=== PATIENT | female | born 1950 | race Caucasian/White ===

== ENCOUNTER 2020-12-15 09:38 | Outpatient (REF) | payer MEDICARE, SELFPAY ==
--- NOTE | ~2020-12-15 | MM_ITS ---
EXAMINATION: BONE DENSITOMETRY CLINICAL INDICATION: Screening for osteoporosis. COMPARISON: Previous BD dated 12/13/2018 and baseline BD dated 10/05/2005. TECHNIQUE: Using a [employer] DXA System (software version: 13.1) manufactured by [employer], dual-energy x-ray absorptiometry was performed of the lumbar spine and left hip. The images are of good technical quality. Summary results are attached. FINDINGS: AP SPINE L1-L4: Current: BMD 0.834 g/cm2, Z-score -1.1, T-score -2.9, osteoporosis, 0.7% increase from previous, 11.3% decrease from baseline (<5% change is not significant). Prior: BMD 0.828 g/cm2. Baseline: BMD 0.940 g/cm2. LEFT FEMUR, NECK: Current: BMD 0.711 g/cm2, Z-score -0.6, T-score -2.4, osteopenia. Prior: BMD 0.680 g/cm2. Baseline: BMD 0.803 g/cm2. LEFT FEMUR, TOTAL: Current: BMD 0.833 g/cm2, Z-score 0.1, T-score -1.4, osteopenia, 8.6% increase from previous, 4.9% decrease from baseline (<5% change is not significant). Prior: BMD 0.767 g/cm2. Baseline: BMD 0.876 g/cm2. IDENTIFIED RISK FACTORS: Osteoporosis, menopause. HISTORY OF FRACTURE: Foot. MEDICATIONS: Calcium supplements or multivitamin, bisphosphonates. MM/XR DEXA axial skeleton IMPRESSION: 1. DIAGNOSIS: Osteoporosis based on the lowest T-score value of -2.9 in the lumbar spine applying World Health Organization criteria. 2. 10-YEAR FRACTURE RISK PREDICTION, FRAX: Major osteoporotic fracture (clinical spine, forearm, hip or shoulder) 12.2%. Hip fracture 2.6%. 3. Treatment Recommendations: NOF guidelines recommend consideration for treatment in postmenopausal women and men age 50 and older presenting with the following: -A hip or vertebral (clinical or morphometric) fracture. -T-score less than or equal to -2.5 at the femoral neck or spine after appropriate evaluation to exclude secondary causes. -Low bone mass at the hip or spine and a 10-year fracture probability by FRAX of greater than or equal to 3% for hip fracture or greater than or equal to 20% for major osteoporotic fracture based on the [place] adapted WHO algorithm. 4. Other Recommendations: All treatment decisions require clinical judgment and consideration of individual patient factors, including patient preferences, comorbidities, previous drug use, risk factors not captured in the FRAX model (e.g. frailty, falls, vitamin D deficiency, increased bone turnover, interval significant decline in bone density) and possible under or overestimation of fracture risk by FRAX. Additional medical evaluation for secondary cause of low bone mineral density may be appropriate. FUTURE SCAN RECOMMENDATION: People with diagnosed cases of osteoporosis or at high risk for fracture should have regular bone mineral density tests. For patients eligible for Medicare, routine testing is allowed once every 2 years. The testing frequency can be increased to one year for patients who have rapidly progressing disease, those who are receiving or discontinuing medical therapy to restore bone mass, or have additional risk factors.
== END 2020-12-15 09:39 | disposition home or self-care (01) ==
LOC: HO.MAMMO 09:38
PROVIDERS: Visit Provider Internal Medicine
DX: Z13.820 Encounter for screening for osteoporosis (principal); M81.0 Age-related osteoporosis without current pathological fracture; Z78.0 Asymptomatic menopausal state; Z79.899 Other long term (current) drug therapy
CPT/HCPCS: 77080

== ENCOUNTER 2021-03-24 12:45 | Emergency (ER) | payer MEDICARE, BC, SELFPAY ==
--- NOTE | ~2021-03-24 | XR_ITS ---
EXAMINATION: XR TIBIA AND FIBULA, LEFT CLINICAL INFORMATION: Fall. Laceration. COMPARISON: None TECHNIQUE: AP and lateral views of the left tibia and fibula were obtained. FINDINGS: The bones and soft tissues are normal. No fracture. No osseous lesions. XR/XR tibia fibula LT 2V IMPRESSION: Unremarkable left tibia and fibula exam.
[2021-03-24 13:05] VITALS: BP 139/61; PULSE 54; RESP 18; TEMP 36.6; O2SAT 97; BMI 25.9
--- NOTE | 2021-03-24 14:00 | ED_ITS ---
HPI - Wound/Laceration General Chief Complaint: Wound/Laceration Stated Complaint: lac from fall Time Seen by Provider: 03/24/21 13:12 Source: patient Mode of arrival: ambulatory Limitations: no limitations History of Present Illness HPI narrative: 70-year-old female here with complaints of laceration to the left lower leg. Patient tells me she tripped at home causing laceration to her left leg from a toy that was on the ground. Tetanus out of date Related Data Allergies Allergy/AdvReac Type Severity Reaction Status Date / Time No Known Allergies Allergy Verified 03/24/21 13:08 Review of Systems Review of Systems: Yes all other systems are reviewed and are negative Constitutional: Constitutional: Reports no additional constitutional complaints, Denies body ache(s), Denies chills, Denies fever(s), Denies heada julio c(s) and Denies weakness Eyes: Eyes: Reports no additional eye complaints and Denies change in vision ENT: Reports system reviewed and no additional complaints, except as documented, Denies dizziness, Denies headache(s), Denies nasal congestion, Denies nasal discharge and Denies neck pain Cardiovascular: Cardiovascular: Reports no additional cardiovascular complaints, Denies chest pain, Denies leg edema and Denies dyspnea Respiratory: Respiratory: Reports no additional respiratory complaints, Denies cough and Denies dyspnea Gastrointestinal: Gastrointestinal: Reports no additional gastrointestinal complaints, Denies abdominal pain, Denies diarrhea, Denies nausea and Denies vomiting Genitourinary: Genitourinary: Reports no additional female genitourinary complaints and Denies urinary incontinence Musculoskeletal: Musculoskeletal: Reports no additional musculoskeletal complaints, Denies back pain, Denies arthralgias, Denies joint swelling, Denies neck pain, Denies numbness and Denies tingling Integumentary/Breasts: Skin/Breast: Reports system reviewed and no additional complaints, except as docu and Denies rash Comments: +laceration Neurologic: Denies Abnormal speech present, Denies dizziness, Denies headache(s), Denies numbness, Denies tingling and Denies weakness PMFSH Past Medical History Attestation statement: The following information was validated with the patient. Source: old records reviewed and nursing notes reviewed Medical History Osteoporosis Surgical History History of delivery Social History Social History Advance Directives: No Advance Directives Information Provided: No Physical Exam Vital Signs: Vital Signs: Last Vital Signs Temp 97.8 F 03/24/21 13:05 Pulse 54 03/24/21 13:05 Resp 18 03/24/21 13:05 BP 139/61 03/24/21 13:05 Pulse Ox 97 03/24/21 13:05 Body Mass Index 25.9 Const: General: cooperative, healthy appearing, comfortable and no acute distress Orientation/consciousness: patient oriented x3 Limitations: no limitations HENMT: Head: Yes normal to inspection Ears: hearing grossly normal bilaterally General nose exam: Normal external nose present Face and sinus: Yes normal facial exam Mouth: Normal oral and palatal mucosa present Throat: Yes posterior oropharynx normal Eyes: General: appearance normal, both eyes and all related structures Pupils: Equal, round and reactive pupils present Neck: Neck: Yes normal visual inspection Chest: Chest palpation & inspection: normal inspection of the chest Resp: Effort & Inspection: normal respiratory effort Auscultation: clear to auscultation bilaterally Cardio: Rate: regular rate Rhythm: regular rhythm Peripheral pulses: Peripheral pulses 2+ throughout GI: Inspection: Yes normal to inspection Palpation (GI): Soft to palpation and nontender Auscultation: normal bowel sounds Back/Spine/Pelvis: Thoracic/Lumbar Spine: thoracic and lumbar spine normal to inspection Skin: General skin exam: no rashes or lesions noted Neuro: General: patient oriented x3, no focal motor deficits and normal sensation to monofilament Cranial nerves: Yes Equal, round and reactive pupil s present Cognition (Neuro): normal cognition Speech: No Abnormal speech present Gait exam (Neuro): Normal gait present Motor exam (neuro): 5/5 motor strength present throughout Extrem: Other: 3cm laceration noted to left anterior mayo, bleeding controlled, FROM General: Yes normal to inspection Course Course Course Narrative: Laceration to the left lower extremity. Will check x-rays. Update tetanus and perform own repair. 1445-x-ray shows no acute finding. See procedure note. Reviewed worrisome signs and symptoms of when to return to the emergency department. Comfortable discharge home. Procedures Laceration Laceration 1: Site: lower extremity Side (If applicable): left Size (cm): 3 Description: linear Depth: involves muscle layer Local Anesthetic: lidocaine 2% Pre-repair: wound explored and irrigated extensively Skin layer closed with: vicryl Size (cm): 4-0 Number of sutures: 4 Technique: simple, interrupted MDM - Wound/Laceration Differential Diagnosis Differential diagnosis: Likely laceration Medical Records Attestation: I reviewed the patient's medical records. Lab Data Attestation: I reviewed the patient's lab results. Imaging Data lft tibia/fibular xray: Attestation: I personally reviewed and interpreted this imaging study as follows: Radiologist's impression: EXAMINATION: XR TIBIA AND FIBULA, LEFT CLINICAL INFORMATION: Fall. Laceration.? COMPARISON: None? TECHNIQUE: AP and lateral views of the left tibia and fibula were obtained. FINDINGS: The bones and soft tissues are normal. No fracture. No osseous lesions. ? XR/XR tibia fibula LT 2V IMPRESSION: Unremarkable left tibia and fibula exam. ? Discharge Plan Discharge Clinical Impression: Laceration Patient Disposition: Home, Self-Care Instructions: Laceration (ED) Additional Instructions: sutures out in 14 days ice, elevation Referrals: Kuldeep Dean DO, MD [Primary Care Provider] - 2 days Interventions: ED Discharge Assessment Last Done: 03/24/21 15:21 Discharge Date/Time: 03/24/21 15:22
[2021-03-24] MEDS: Diphth,Pertus(ACell),Tet Adult 0.5 ML SYRINGE IM (14:10)
[2021-03-24] MEDS: Lidocaine HCl 2 % MPF 5 ML VIAL SUBCUT (15:21)
== END 2021-03-24 15:22 | disposition home or self-care (01) ==
PROVIDERS: Emergency Provider Emergency Medicine; PCP Internal Medicine
DX: S81.812A Laceration without foreign body, left lower leg, initial encounter (principal); M79.662 Pain in left lower leg; W01.10XA Fall on same level from slipping, tripping and stumbling with subsequent striking against unspecified object, initial encounter; Y93.9 Activity, unspecified; Y92.009 Unspecified place in unspecified non-institutional (private) residence as the place of occurrence of the external cause; Y99.9 Unspecified external cause status
CPT/HCPCS: 12002; 73590; 90471; 90715; 99284

== ENCOUNTER 2021-04-25 12:31 | Outpatient (REF) | payer MEDICARE, SELFPAY ==
--- NOTE | ~2021-04-25 | MM_ITS ---
EXAMINATION: MM SCREENING DIGITAL BREAST TOMOSYNTHESIS, BILATERAL CLINICAL INFORMATION: Screening. Asymptomatic. Remote history reduction mammoplasty, 1997. The lifetime risk of breast cancer based on the Tyrer-Cuzick Model is 3%. COMPARISON: Mammography: 04/19/2020, 12/13/2018, 12/08/2017 TECHNIQUE: Digital breast tomosynthesis is performed in both the craniocaudal and mediolateral oblique views along with computer-aided detection (CAD). Synthesized 2D images are generated from the tomosynthesis. FINDINGS: The breasts are heterogeneously dense, which may obscure small masses (ACR BI-RADS breast composition Category c). There are no significant masses, abnormal calcifications, or other abnormalities. Fine fibronodular parenchymal pattern is similar to prior studies. There is no developing density. The axilla and skin contours are unremarkable. No significant changes. MM/MM tomosynthesis screening BI IMPRESSION: No significant changes from prior exams. ASSESSMENT: BI-RADS 2: Benign RECOMMENDATION: Routine annual mammography screening. This patient's information was entered into a reminder system with a target due date for their next mammogram.
== END 2021-04-25 12:32 | disposition home or self-care (01) ==
LOC: HO.MAMMO 12:31
PROVIDERS: Visit Provider Internal Medicine
DX: Z12.31 Encounter for screening mammogram for malignant neoplasm of breast (principal)
CPT/HCPCS: 77063; 77067

== ENCOUNTER 2022-04-27 09:13 | Outpatient (REF) | payer MEDICARE, SELFPAY ==
--- NOTE | ~2022-04-27 | MM_ITS ---
EXAMINATION: MM SCREENING DIGITAL BREAST TOMOSYNTHESIS, BILATERAL CLINICAL INFORMATION: Screening. Asymptomatic. The lifetime risk of breast cancer based on the Tyrer-Cuzick Model is 3%. COMPARISON: Mammography: 04/25/2021, 04/19/2020, 12/13/2018 TECHNIQUE: Digital breast tomosynthesis is performed in both the craniocaudal and mediolateral oblique views along with computer-aided detection (CAD). Synthesized 2D images are generated from the tomosynthesis. FINDINGS: The breasts are heterogeneously dense, which may obscure small masses (ACR BI-RADS breast composition Category c). There are no significant masses, abnormal calcifications, or other abnormalities. There is fine fibronodular parenchymal pattern is similar to prior exams. No developing density or architectural abnormality. The axilla are unremarkable. MM/MM tomosynthesis screening BI IMPRESSION: No mammographic evidence of malignancy. ASSESSMENT: BI-RADS 1: Negative RECOMMENDATION: Routine annual mammography screening. This patient's information was entered into a reminder system with a target due date for their next mammogram.
== END 2022-04-27 09:14 | disposition home or self-care (01) ==
LOC: HO.MAMMO 09:13
PROVIDERS: PCP Internal Medicine; Visit Provider Internal Medicine
DX: Z12.31 Encounter for screening mammogram for malignant neoplasm of breast (principal)
CPT/HCPCS: 77063; 77067

== ENCOUNTER 2023-05-04 08:48 | Outpatient (REF) | payer MEDICARE, BC, SELFPAY ==
--- NOTE | ~2023-05-04 | MM_ITS ---
EXAMINATION: BONE DENSITOMETRY CLINICAL INDICATION: Osteoporosis. COMPARISON: Previous BD dated 12/15/2020 and baseline BD dated 10/05/1999. TECHNIQUE: Using a [employer] DXA System (software version: 13.1) manufactured by [employer], dual-energy x-ray absorptiometry was performed of the lumbar spine and left hip. The images are of good technical quality. Summary results are attached. FINDINGS: LEFT FEMUR, NECK: Current: BMD 0.719 g/cm2, Z-score -0.5, T-score -2.3, osteopenia. Prior: BMD 0.711 g/cm2. Baseline: BMD 0.803 g/cm2. LEFT FEMUR, TOTAL: Current: BMD 0.821 g/cm2, Z-score 0.2, T-score -1.5, osteopenia, 1.4% decrease from previous, 6.3% decrease from baseline (<5% change is not significant). Prior: BMD 0.833 g/cm2. Baseline: BMD 0.876 g/cm2. AP SPINE L1-L4: Current: BMD 0.780 g/cm2, Z-score -1.5, T-score -3.3, osteoporosis, 6.5% decrease from previous, 17.0% decrease from baseline (<5% change is not significant). Prior: BMD 0.834 g/cm2. Baseline: BMD 0.940 g/cm2. IDENTIFIED RISK FACTORS: Early menopause, secondary osteoporosis, hysterectomy, history of fracture (adult), low calcium intake, osteoporosis, rheumatoid arthritis. HISTORY OF FRACTURE: Other. MEDICATIONS: Calcium, multivitamin. MM/XR DEXA axial skeleton IMPRESSION: 1. DIAGNOSIS: Osteoporosis based on the lowest T-score value of -3.3 in the lumbar spine applying World Health Organization criteria. 2. 10-YEAR FRACTURE RISK PREDICTION, FRAX: According to the guidelines, FRAX calculation should only be performed on patients in the osteopenia bone density category. Therefore, FRAX was not performed on this patient. 3. Treatment Recommendations: NOF guidelines recommend consideration for treatment in postmenopausal women and men age 50 and older presenting with the following: -A hip or vertebral (clinical or morphometric) fracture. -T-score less than or equal to -2.5 at the femoral neck or spine after appropriate evaluation to exclude secondary causes. -Low bone mass at the hip or spine and a 10-year fracture probability by FRAX of greater than or equal to 3% for hip fracture or greater than or equal to 20% for major osteoporotic fracture based on the [place] adapted WHO algorithm. 4. Other Recommendations: All treatment decisions require clinical judgment and consideration of individual patient factors, including patient preferences, comorbidities, previous drug use, risk factors not captured in the FRAX model (e.g. frailty, falls, vitamin D deficiency, increased bone turnover, interval significant decline in bone density) and possible under or overestimation of fracture risk by FRAX. Additional medical evaluation for secondary cause of low bone mineral density may be appropriate. FUTURE SCAN RECOMMENDATION: People with diagnosed cases of osteoporosis or at high risk for fracture should have regular bone mineral density tests. For patients eligible for Medicare, routine testing is allowed once every 2 years. The testing frequency can be increased to one year for patients who have rapidly progressing disease, those who are receiving or discontinuing medical therapy to restore bone mass, or have additional risk factors.
--- NOTE | ~2023-05-04 | MM_ITS ---
EXAMINATION: MM SCREENING DIGITAL BREAST TOMOSYNTHESIS, BILATERAL CLINICAL INFORMATION: Screening. Asymptomatic. The patient has a history of bilateral breast reduction. COMPARISON: Mammography: This study is compared with prior exams dating back to 2018. TECHNIQUE: Digital breast tomosynthesis is performed in both the craniocaudal and mediolateral oblique views along with computer-aided detection (CAD). Synthesized 2D images are generated from the tomosynthesis. FINDINGS: The breasts are heterogeneously dense, which may obscure small masses (ACR BI-RADS breast composition Category c). There are no significant masses, abnormal calcifications, or other abnormalities. MM/MM tomosynthesis screening BI IMPRESSION: No mammographic evidence of malignancy. ASSESSMENT: BI-RADS BI-RADS 1 - Negative RECOMMENDATION: Routine annual mammography screening. 1 year F/U This examination should not preclude the clinical evaluation of a suspicious palpable abnormality. This patient's information was entered into a reminder system with a target due date for their next mammogram.
== END 2023-05-04 08:49 | disposition home or self-care (01) ==
LOC: HO.MAMMO 08:48
PROVIDERS: PCP Internal Medicine; Visit Provider Internal Medicine
DX: Z12.31 Encounter for screening mammogram for malignant neoplasm of breast (principal); Z13.820 Encounter for screening for osteoporosis; Z78.0 Asymptomatic menopausal state; M81.0 Age-related osteoporosis without current pathological fracture
CPT/HCPCS: 77063; 77067; 77080

== ENCOUNTER → 2023-05-04 09:00 | Outpatient (BNV) | payer MEDICARE, BC, SELFPAY | PROVIDERS: PCP Internal Medicine; Visit Provider Radiology Diagnostic Radiology | DX: Z12.31 Encounter for screening mammogram for malignant neoplasm of breast (principal) | CPT/HCPCS: 77063; 77067; 77080 ==

== ENCOUNTER 2024-05-09 08:38 | Outpatient (REF) | payer MEDICARE, BC, SELFPAY ==
--- NOTE | ~2024-05-09 | MM_ITS ---
EXAMINATION: MM SCREENING DIGITAL BREAST TOMOSYNTHESIS, BILATERAL CLINICAL INFORMATION: Screening. Asymptomatic. COMPARISON: Mammography: Comparison is made with available priors TECHNIQUE: Digital breast mammography with tomosynthesis is performed in both the craniocaudal and mediolateral oblique views along with computer-aided detection (CAD). FINDINGS: The breasts are heterogeneously dense, which may obscure small masses (ACR BI-RADS breast composition Category c). Left: There are no significant masses, abnormal calcifications, or other abnormalities. Right: Grouped calcifications in the upper-outer breast posterior depth. No suspicious masses or other abnormal findings. MM/MM tomosynthesis screening BI IMPRESSION: Left: No mammographic evidence of malignancy. Right: Grouped calcifications additional imaging is recommended at this time. ASSESSMENT: BI-RADS BI-RADS 0 - Incomplete: Needs additional Imaging. RECOMMENDATION: 1. Additional views of the right breast 2. Targeted ultrasound if warranted after review of the additional views. 3. Radiology department staff will contact the patient for additional imaging. Additional Imaging required This examination should not preclude the clinical evaluation of a suspicious palpable abnormality. This patient's information was entered into a reminder system with a target due date for their next mammogram. Electronically signed by: Elma King DO 05/22/2024 08:07 PM EDT
== END 2024-05-09 08:39 | disposition home or self-care (01) ==
LOC: HO.MAMMO 08:38
PROVIDERS: PCP Internal Medicine; Visit Provider Internal Medicine
DX: Z12.31 Encounter for screening mammogram for malignant neoplasm of breast (principal)
CPT/HCPCS: 77063; 77067

== ENCOUNTER → 2024-05-09 08:45 | Outpatient (BNV) | payer MEDICARE, BC, SELFPAY | PROVIDERS: PCP Internal Medicine; Visit Provider Internal Medicine | DX: Z12.31 Encounter for screening mammogram for malignant neoplasm of breast (principal) | CPT/HCPCS: 77063; 77067 ==

== ENCOUNTER 2024-06-11 08:18 | Outpatient (REF) | payer MEDICARE, BC, SELFPAY ==
--- NOTE | ~2024-06-11 | MM_ITS ---
EXAMINATION: MM DIAGNOSTIC DIGITAL BREAST TOMOSYNTHESIS, RIGHT CLINICAL INFORMATION: Evaluate grouped calcifications upper outer right breast, middle one third seen on screening exam 05/09/2024. COMPARISON: Mammography: 06/08/2024, 05/04/2023, 04/27/2022, 04/25/2021, and exams dating back to 2018. TECHNIQUE: Digital breast tomosynthesis is performed in the following views: 2-D spot magnification right CC x1 and MLO x2. FINDINGS: The breasts are heterogeneously dense, which may obscure small masses (ACR BI-RADS breast composition Category c). In the upper outer quadrant of the right breast, middle one third, there is a small grouping of microcalcifications, approximately 12 in number, which have slowly increased in number over the prior 2 years. They demonstrate pleomorphism with possibly one branching form. These are indeterminant, and given increase over time, stereotactic guided biopsy is recommended for further characterization. No additional abnormalities identified on these views. MM/MM added views RT IMPRESSION: -Indeterminate calcifications right breast upper outer quadrant, middle one third. Stereotactic biopsy advised for definitive characterization. -Findings and recommendations were discussed with the patient in detail, who appears in understanding. ASSESSMENT: BI-RADS BI-RADS 4 - Suspicious finding RECOMMENDATION: Biopsy recommended Electronically signed by: Pavan Johnston MD 06/11/2024 08:59 AM EDT
== END 2024-06-11 08:19 | disposition home or self-care (01) ==
LOC: HO.MAMMO 08:18
PROVIDERS: PCP Internal Medicine; Visit Provider Internal Medicine
DX: R92.1 Mammographic calcification found on diagnostic imaging of breast (principal)
CPT/HCPCS: 77065

== ENCOUNTER → 2024-06-11 08:30 | Outpatient (BNV) | payer MEDICARE, BC, SELFPAY | PROVIDERS: PCP Internal Medicine; Visit Provider Radiology Diagnostic Radiology | DX: R92.1 Mammographic calcification found on diagnostic imaging of breast (principal) | CPT/HCPCS: 77065; G0279 ==

== ENCOUNTER 2024-06-19 07:47 | Outpatient (REF) | payer MEDICARE, BC, SELFPAY ==
--- NOTE | ~2024-06-19 | MM_ITS ---
EXAMINATION: STEREOTACTIC TOMOSYNTHESIS-GUIDED VACUUM-ASSISTED BREAST BIOPSY, RIGHT SPECIMEN RADIOGRAPH, RIGHT POST PROCEDURE DIGITAL MAMMOGRAM, RIGHT CLINICAL INFORMATION: Indeterminate calcifications upper outer right breast middle one third, for sampling. COMPARISON: Mammography: 06/11/2024, 06/08/2024, 05/04/2023, 04/27/2022, 04/25/2021, and exams dating back to 2018. TECHNIQUE/PROCEDURE: Informed consent was obtained from the patient after discussion of the benefits, risks, and alternatives to biopsy today. Patient appeared to understand. Gave opportunity for questions. Patient signed consent form. BIOPSY TABLE: [employer] Affirm Prone Biopsy System. LESION: Grouped microcalcifications upper outer right breast, middle third. LOCAL ANESTHESIA: 4 mL 1% lidocaine; 9 mL 1% lidocaine with epinephrine. DERMATOTOMY: Single 2 mm skin rojelio dermatotomy performed. NEEDLE: [employer] 9-gauge vacuum assisted core biopsy device. APPROACH: Craniocaudal. TARGETING: Digital breast tomosynthesis used for targeting. CORES: 7. CLIP: Top hat shaped. SPECIMEN RADIOGRAPH: Specimen radiograph is taken in separate room using digital mammography. The index calcifications are in the excised cores. POST PROCEDURE UNILATERAL DIGITAL MAMMOGRAM: The post biopsy mammogram is performed in separate room using separate digital mammography equipment from the biopsy procedure. CC and ML views are obtained. The breasts are heterogeneously dense, which may obscure small masses (breast composition category: c). The clip marker is in accurate position. The calcifications appear essentially completely sampled at the biopsy site. The patient tolerated the procedure well. No immediate complications. Home instructions reviewed with the patient. Final pathology results are pending. MM/MM stereotactic biopsy RT IMPRESSION: 1. Digital tomosynthesis-guided core biopsy right breast calcifications upper outer quadrant middle one third, with clip placement. 2. Specimen radiograph taken and post procedure mammogram. There is satisfactory and accurate positioning of the biopsy clip. 3. Final pathology results pending. An addendum report will be issued. Electronically signed by: Pavan Johnston MD 06/19/2024 10:14 AM EDT
[2024-06-19] MEDS: Lidocaine HCl 1 % 20 ML VIAL 3 ML SUBCUT (09:31)
[2024-06-19] MEDS: Lidocaine HCl 1%/Epi 1:100,000 10 ML VIAL 19 ML SUBCUT (09:32)
[2024-06-19] MEDS: Sodium Bicarbonate 8.4% 50 MEQ/50 ML VIAL SUBCUT (09:33)
== END 2024-06-19 07:48 | disposition home or self-care (01) ==
LOC: HO.MAMMO 07:47
PROVIDERS: PCP Internal Medicine; Visit Provider Internal Medicine
DX: R92.1 Mammographic calcification found on diagnostic imaging of breast (principal)
CPT/HCPCS: 19081; 88305; A4648; J2003; J2004

== ENCOUNTER → 2024-06-19 08:00 | Outpatient (BNV) | payer MEDICARE, BC, SELFPAY | PROVIDERS: PCP Internal Medicine; Visit Provider Radiology Diagnostic Radiology | DX: R92.1 Mammographic calcification found on diagnostic imaging of breast (principal) | CPT/HCPCS: 19081 ==

== ENCOUNTER 2025-05-15 08:20 | Outpatient (REF) | payer MEDICARE, BC, SELFPAY ==
--- NOTE | ~2025-05-15 | MM_ITS ---
EXAMINATION: DXA BONE DENSITY AXIAL HISTORY: AGE RELATED OSTEOPOROSIS TECHNIQUE: [employer] Dual energy absorptiometry (DEXA) of the lumbar spine, total left hip, and femoral neck was performed. COMPARISON: Comparison is made with the prior examination dated 05/04/2023. FINDINGS: The bone mineral density of the lumbar spine is 0.825 g/cm2, corresponding to a T-score of -3.0, and a Z-score of -1.1. This is indicative of osteoporosis. This represents a BMD change of 5.8% compared to the prior exam. This is statistically significant. The bone mineral density of the left total hip is 0.818 g/cm2, corresponding to a T-score of -1.5, and a Z-score of 0.2. This is indicative of osteopenia. This represents a BMD change of -0.4% compared to the prior exam. This is not statistically significant. The bone mineral density of the left femoral neck is 0.714 g/cm2, corresponding to a T-score of -2.3, and a Z-score of -0.4. This is indicative of osteopenia. This represents a BMD change of -0.7% compared to the prior exam. FRACTURE RISK: The FRAX index suggests a ten year probability of major osteoporotic fracture of 8.5%, and of hip fracture 2.3%. MM/XR DEXA axial skeleton IMPRESSION: Based on bone mineral density, and according to World Health Organization (WHO) criteria, the diagnosis is consistent with osteoporosis. Statistically, 68% of repeat scans fall within 1 SD (+/- 0.010 g/cm2 for AP spine L1-L4) and 1 SD (+/- 0.012 g/cm2 for femur total) FRAX is a trademark of the [employer]'s [place] [facility] [employer], a World Health Organization (WHO) Collaborating Center. Electronically signed by: Candelario Balderrama MD 05/15/2025 10:07 AM EDT
--- OUTSIDE RECORDS SUMMARY | 2025-05-15 08:51 | XMS_ITS | Encounter Summary ---
Author Organization [facility] Address [address] [place] [id number] Phone Care Team Providers Care Financial Advocate Name Role Phone KilosebastiánjessKuldeep richmond Primary Care Provider [phone] Encounter Details Date Type Department Care Team (Late Contact Info) Description 10/25/2023 Ancillary Orders [address] [address] System, Provider Not In, [facility] [address] [id number] Social History Tobacco Use Types Packs/Day Years Used Date Smoking Tobacco: Former Cigarettes Smokeless Tobacco: Never Alcohol Use Standard Drinks/Week Comments Never 0 (1 standard drink = 0.6 oz pur e alcohol) Education Answer Date Recorded Are you interested in more education? Not on jose e 09/21/2023 Are you concerned about learning? Not on file 09/21/2023 No 09/21/2023 No 09/21/2023 Digital Access Answer Date Recorded No 09/21/2023 No 09/21/2023 Reliable internet access at home? Not on file 09/21/2023 Device with a working camera? Not on file Comments Unknown Sex and Gender Information Value Date Recorded Sex Assigned at Female 10/16/2023 1:50 PM EST Legal Sex Female 1:06 PM EDT Gender Identity Female 10/16/2023 1:50 PM EST Sexual Orientation Not on file documented as of this encounter Plan of Treatment Upcoming Encounters Date Type Department Care Team (Late Contact Info) Description 05/25/2025 8:40 AM EDT Office Visit [facility] [address] [place] [address] Abbey Calixto MD [address] [place] [id number] [email or web address] documented as of this encounter Results * DXA Outside (No Interpretation) (12/15/2020 12:00 AM EDT) Narrative Record, 10/25/2023 1:50 PM EST This study is for PACS storage only and not for interpretation. Procedure Note Record, 10/25/2023 This study is for PACS storage only and not for interpretation. us Provider Not In System PhD IMG OUTSIDE IMAGING W /OUT INTERPRETATION Final Result documented in this encounter Visit Diagnoses Not on filedocumented in this encounter Care Teams Financial Advocate Relationship Specialty Start Date End Date Kuldeep Dean DO [address] [place] [id number] PCP - General Internal Medicine 10/16/23 documented as of this encounter Additional Source Comments The information contained in this document represents components of the legal health record. It is not the complete legal health record.[facility]
--- OUTSIDE RECORDS SUMMARY | 2025-05-15 08:51 | XMS_ITS | Clinical Summary ---
Author Organization [facility] Address [address] [place] [phone] Phone Care Team Providers Care Lay Out Worker Name Role Phone Kuldeep Dean DO Primary Care Provider Allergies No known active allergies Medications dicyclomine (BENTYL) 10 MG capsule Take 10 mg by mouth daily as needed. 09/25/2023 Active glucosam/chond-m sm1/C/tarcy/bor (GLUCOSAMINE-CHO ND-MSM COMPLEX ORAL) Take by mouth. Active CALCIUM-VIT D3-MAG GLY-ZINC ORAL Take by mouth. Active Medication-Free Text Focus Active glucosamine/kenna dr miley villa (OSTEO BI-FLEX ORAL) Take by mouth. Active predniSONE (DELTASONE) 20 MG tablet Take 20 mg by mouth daily with breakfast. For 3 days for rash Active Active Problems Problem Noted Date Diagnosed Date Age-related osteoporosis wit hout current pathological fracture 10/23/2023 Assessment & Plan (07/03/2024 6:04 PM EST): Postmenopausal osteoporosis diagnosed around 2004. GI intolerance to Fosamax. History of left fibula fracture in 07/2019 after a fall. Received 3 doses of Reclast between 01/2019 and 02/2021. Last DEXA in 04/2023 showed significant 6.5% decline at the lumbar spine with T-score -3.3 and 6.3% decline at the left total hip with T-score - 1.5. She received her fourth dose of Reclast in 11/2023. No recent falls and no new fracture. Calcium and vitamin D intake is adequate. Remains very active, exercising regularly. Plan to continue current calcium and vitamin D supplement. To have labs soon. Repeat DEXA after 05/04/2025 at [facility]. Assessment & Plan (10/23/2023 9:50 AM EST): Postmenopausal osteoporosis diagnosed around 2004. GI intolerance to Fosamax. History of left fibula fracture in 07/2019 after a fall. Received 3 doses of Reclast 1 year apart, last dose in 02/2021. Last DEXA reported in 04/2023, waiting for report. Previous DEXA in 11/2020 showed stable lumbar spine with T-score -2.9, left total hip improved by 8.6% compared to 2017 with T-score -1.4. Patient has been taking a calcium plus D supplement, exercising regularly, no tendency to fall. Recent labs are not available. Discussed importance of adequate calcium, vitamin D intake, regular weightbearing exercises and fall prevention. Recommended to add some posture exercises. May check out the bone health and osteoporosis foundation's website for more ideas about exercise. Will obtain last DEXA report and have blood work and urine test and we will discuss further management through [place]. Follow-up in 6 to 8 months. Vitamin D deficiency, unspecified 10/23/2023 Assessment & Plan (07/03/2024 6:07 PM EST): Patient is taking calcium plus D supplement, not sure about dose. Last vitamin D level was normal at 36.9 in 10/2023. PTH was slightly elevated at 72 with normal serum calcium of 9.4 and albumin of 4.3. No history of kidney stones. Will check labs and adjust vitamin D dose as needed. Assessment & Plan (10/23/2023 9:50 AM EST): Patient is taking calcium plus D supplement, not sure about dose. Recent labs are not available. Will check level and adjust dose as needed. Encounters Date Type Department Care Team Description 03/05/2025 Telephone [facility] [address] [place] [address] Abbey Calixto MD Request For Order(s) from Last 3 Months Social History Tobacco Use Types Packs/Day Years [...] PM EST Sexual Orientation Not on file Last Filed Vital Signs Vital Sign Reading Time Taken Comments Blood Pressure 128/74 06/23/2024 8:25 AM EDT Pulse 54 06/23/2024 8:25 AM EDT Temperature - - Respiratory Rate - - Oxygen Saturation 98% 10/23/2023 8:39 AM EST Inhaled Oxygen Concentration - - Weight 63.6 kg (140 lb 3.2 oz) 06/23/2024 8:25 A M EDT Height 144.8 cm (4' 9 ) 06/23/2024 8:25 AM EDT Body Mass Index 30.34 06/23/2024 8:25 AM EDT Plan of Treatment Upcoming Encounters Date Type Department Care Team (Late st Contact Info) Description 05/25/2025 8:40 AM EDT Office Visit [facility] [address] [place] [address] [place] [address] Abbey Calixto MD [address] [place] [id number] Health Maintenance Due Date Last Done Comments Adult Td,Tdap Booster 1950 LIPID PANEL 1950 DEPRESSION SCREENING 1963 SMOKING Hx and SMOKELESS TOB ACCO SCREENING 1964 HEPATITIS C SCREENING 1969 MAMMOGRAM 1991 COLOGUARD 1996 COLONOSCOPY 1996 COLORECTAL CANCER SCREENING 1996 FIT TEST 1996 FOBT 1996 SIGMOIDOSCOPY 1996 VIRTUAL COLONOSCOPY 1996 PNEUMOCOCCAL VACCINES (50+ y ears) (1 of 1 - PCV) 2001 ZOSTER VACCINES (1 of 2) 2001 INFLUENZA VACCINE (#1) 2025 COVID-19 VACCINE (1 - 2023-2 5 season) 2025 RSV VACCINE (1 - 1-dose 75+ series) 2026 OSTEOPOROSIS SCREENING INITI AL (ONE-TIME) Completed 10/25/2023 HEPATITIS A VACCINES Aged Out No long er eligible based on patient's age to complete this topic HIB VACCINES Aged Out No longer eligi ble based on patient's age to complete this topic MENINGOCOCCAL VACCINES (ACWY) Aged Out No longer eligible based on patient's age to complete this topic MENINGOCOCCAL VACCINES (B) Aged Out N o longer eligible based on patient's age to complete this topic Medical Devices Not on file Procedures Procedure Name Priority Date/Time Associated Diagnosis Comments HM DEXA SCAN Routine 10/25/2023 2:00 PM EST from Last 3 Months or Most Recently Relevant to Health Maintenance Results * HM DEXA SCAN (10/25/2023 2:00 PM EST) us Provider Not In System PhD HEALTH MAINTENANCE Fi nal Result from Last 3 Months or Most Recently Relevant to Health Maintenance Insurance [facility] [place] [address] [facility] FEDERAL MEDICARE PART A & B [facility] MEDICARE PART A & B [facility] MEDICARE PART A & B MEDICARE PART A & B [facility] MEDICARE PART A & B [facility] MEDICARE PART A & B Care Teams Lay Out Worker Relationship Specialty Start Date End Date Kuldeep Dean DO [address] [place] [address] [address] [place] [address] PCP - General Internal Medicine 10/16/23 Additional Source Comments The information contained in this document represents components of the legal health record. It is not the complete legal health record.[facility]
--- OUTSIDE RECORDS SUMMARY | 2025-05-15 08:51 | XMS_ITS | Encounter Summary ---
Author Organization [facility] Address [address] [place] [phone] Phone Care Team Providers Care Research Test Engine Evaluator Name Role Phone KilosebastiánjessKuldeep richmond Primary Care Provider [phone] Encounter Details Date Type Department Care Team (Late Contact Info) Description 10/25/2023 Ancillary Orders [address] [address] System, Provider Not In, PhD Partners [address] [address] Social History Tobacco Use Types Packs/Day Years [...] AM EDT Office Visit [facility] [address] [place] [address] Abbey Calixto MD [address] [place] [id number] [email or web address] documented as of this encounter Results * DXA Outside (No Interpretation) (05/04/2023 12:00 AM EDT) Narrative Record, 10/25/2023 1:45 PM EST This study is for PACS storage only and not for interpretation. Procedure Note Record, 10/25/2023 This study is for PACS storage only and not for interpretation. us Provider Not In System PhD IMG OUTSIDE IMAGING W /OUT INTERPRETATION Final Result documented in this encounter Visit Diagnoses Not on filedocumented in this encounter Care Teams Research Test Engine Evaluator Relationship Specialty Start Date End Date Kuldeep Dean DO [address] [place] [id number] PCP - General Internal Medicine 10/16/23 documented as of this encounter Additional Source Comments The information contained in this document represents components of the legal health record. It is not the complete legal health record.[facility]
--- OUTSIDE RECORDS SUMMARY | 2025-05-15 08:51 | XMS_ITS | Clinical Summary ---
Author Organization [address] Address [address] [place] [phone] Phone Care Team Providers Care Supervisor Body Assembly Name Role Phone Kuldeep Dean DO Primary Care Provider [phone] Immunizations Name Administration Dates Next Due Moderna SARS-CoV-2 COVID-19, mRNA, LNP-S, preservative free 09/21/2021 Surgical History Surgery Date Site/Laterality Comments OTHER SURGICAL HISTORY Bilateral PROCEDURE: AL POST-CATARACT LASER SURGERY Medical History Medical History Date Comments History of DX:History of Social History Tobacco Use Types Packs/Day Years Used Date Smoking Tobacco: Never Smokeless Tobacco: Never Alcohol Use Standard Drinks/Week Comments Never 0 (1 standard drink = 0.6 oz pur e alcohol) Comments Unknown Sex and Gender Information Value Date Recorded Sex Assigned at Not on file Legal Sex Female 10:05 PM EST Gender Identity Not on file Sexual Orientation Not on file Obstetrics History Plan of Treatment Health Maintenance Due Date Last Done Comments Breast Cancer Screening 1950 Pneumococcal Vaccine: 50+ Years (1 of 1 - PCV) 2001 Zoster Vaccines (1 of 2) 2001 Colorectal Cancer Screening: Colonoscopy 07/29/2022 Falls Risk Assessment 07/29/2022 Hepatitis C Screening 07/29/2022 Medicare Annual Wellness Visit 07/29/2022 Osteoporosis Screening (Bone Density Screening) 07/29/2022 Social Influencers of Health Screening 07/29/2022 Depression Screening 08/27/2024 COVID-19 Vaccine ( season) 2025 09/21/2021, 11/22/2020, 10/30/2020 RSV Immunization Adult Patients (1 - 1-dose 75+ series) 2026 Cholesterol Screening (Lipid Panel) 04/23/2030 04/23/2025 DTaP,Tdap,and Td Vaccines (2 - Td or Tdap) 03/24/2031 03/24/2021 Influenza Vaccine Completed 04/23/2025, , 08/10/2022, Additional history exists HIB Vaccines Aged Out No longer eligi ble based on patient's age to complete this topic HPV Vaccines Aged Out No longer eligi ble based on patient's age to complete this topic Hepatitis A Vaccines Aged Out No long er eligible based on patient's age to complete this topic Hepatitis B Vaccines Aged Out No long er eligible based on patient's age to complete this topic IPV Vaccines Aged Out No longer eligi ble based on patient's age to complete this topic MMR Vaccines Aged Out No longer eligi ble based on patient's age to complete this topic Meningococcal ACWY Vaccine Aged Out N o longer eligible based on patient's age to complete this topic Meningococcal B Vaccine Aged Out No l onger eligible based on patient's age to complete this topic RSV Immunization Patients Under 20 months Aged Out No longer eligible based on patient's age to complete this topic Varicella Vaccines Aged Out No longer eligible based on patient's age to complete this topic Procedures Procedure Name Priority Date/Time Associated Diagnosis Comments CBC WITH AUTO DIFFERENTIAL Routine 04/23/2025 12:00 PM EDT Laboratory tests ordered as part of a complete physical exam (CPE) Joint pain IGT (impaired glucose tolerance) Osteoporosis VITAMIN D 25 HYDROXY Routine 04/23/2025 12:00 PM EDT Laboratory tests ordered as part of a complete physical exam (CPE) Joint pain IGT (impaired glucose tolerance) Osteoporosis CYCLIC CITRULLINATED PEPTIDE, IGG AND IGA Routine 04/23/2025 12:00 PM EDT Laboratory tests ordered as part of a complete physical exam (CPE) Joint pain IGT (impaired glucose tolerance) Osteoporosis RHEUMATOID FACTOR Routine 04/23/2025 12: 00 PM EDT Laboratory tests ordered as part of a complete physical exam (CPE) Joint pain IGT (impaired glucose tolerance) Osteoporosis LOYD IFA WITH TITER AND PATTERN Routine 04/23/2025 12:00 PM EDT Laboratory tests ordered as part of a complete physical exam (CPE) Joint pain IGT (impaired glucose tolerance) Osteoporosis HEMOGLOBIN A1C Routine 04/23/2025 12:00 PM EDT Laboratory tests ordered as part of a complete physical exam (CPE) Joint pain IGT (impaired glucose tolerance) Osteoporosis COMPREHENSIVE METABOLIC PANEL Routine 04/23/2025 12:00 PM EDT Laboratory tests ordered as part of a complete physical exam (CPE) Joint pain IGT (impaired glucose tolerance) Osteoporosis CBC AND DIFFERENTIAL Routine 04/23/2025 12:00 PM EDT Laboratory tests ordered as part of a complete physical exam (CPE) Joint pain IGT (impaired glucose tolerance) Osteoporosis THYROID STIMULATING HORMONE Routine 04/23/2025 12:00 PM EDT Laboratory tests ordered as part of a complete physical exam (CPE) Joint pain IGT (impaired glucose tolerance) Osteoporosis H/O: obesity LIPID PANEL WITH REFLEX TO DIRECT LDL Routine 04/23/2025 12:00 PM EDT Laboratory tests ordered as part of a complete physical exam (CPE) Joint pain IGT (impaired glucose tolerance) Osteoporosis Abnormal finding of blood chemistry, unspecified from Last 3 Months Results * (ABNORMAL) Lipid panel with reflex to direct LDL (04/23/2025 12:00 PM EDT) Cholesterol 200 0 - 200 mg/dL LAB CHEMISTRY METHOD 04/23/2025 4:[address] [facility] Triglycerides 76 0 - 150 mg/dL LAB CHEMISTRY METHOD 04/23/2025 4:[address] [facility] HDL 71 >=40 mg/dL LAB CHEMISTRY METHOD 04/23/2025 4:[address] [facility] LDL Calculated 114(H) 0 - 100 mg/dL LAB CHEMISTRY METHOD 04/23/2025 4:[address] [facility] Comment:Estimated LDL Calcul ated using equation: Total cholesterol - HDL cholesterol - (Triglycerides/5) VLDL Cholesterol Victorino 15.2 mg/dL LAB CHEMISTRY METHOD 04/23/2025 4:[address] [facility] Non HDL Chol. (LDL+VLDL) 129 <145 mg/dL LAB CHEMISTRY METHOD 04/23/2025 4:[address] [facility] Chol/HDL Ratio 2.8 0.0 - 4.4 LAB CHEMISTRY METHOD 04/23/2025 4:[address] [facility] Blood Venous blood specimen / Unknown Venipuncture / Unknown 04/23/2025 12:00 PM EDT 04/23/2025 12:00 PM EDT [facility] LAB BLOOD ORDERABLES Final Resul t Performing Organization Address City/[facility]/ZIP Co de Phone Number [facility] [address] [place] [address], [place] [phone] * Cyclic citrullinated peptide, IgG and IgA (04/23/2025 12:00 PM EDT) [facility] CCP AB Quant 8 <20 Units LAB CHEMISTRY METHOD 04/28/2025 10:[address] [facility] Cyclic Citrullinated Peptide (CCP) Antibody Negative Negative LAB CHEMISTRY METHOD 04/28/2025 10:[address] [facility] Blood Venous blood specimen / Unknown Venipuncture / Unknown 04/23/2025 12:00 PM EDT 04/23/2025 12:00 PM EDT [facility] LAB BLOOD ORDERABLES Final Resul t Performing Organization Address City/[facility]/ZIP Co de Phone Number [facility] [address] [place] [address], [place] [phone] * LOYD IFA with titer and pattern (04/23/2025 12:00 PM EDT) [facility] LOYD Negative Negative 04/28/2025 3:[address] [facility] Comment:LOYD performed by ind irect immunofluorescence (IFA) using HEp-2 substrate. Blood Venous blood specimen / Unknown Venipuncture / Unknown 04/23/2025 12:00 PM EDT 04/23/2025 12:00 PM EDT [facility] LAB BLOOD ORDERABLES Final Resul t [facility] [address] [place] [address], [place] [phone] * (ABNORMAL) CBC auto differential (04/23/2025 12:00 PM EDT) [facility] WBC 5.3 4.8 - 10.8 K/mcL LAB HEMETOLOGY METHOD 04/23/2025 3:[address] [facility] RBC 5.00(H) 3.80 - 4.80 M/mcL LAB HEMETOLOGY METHOD 04/23/2025 3:[address] [facility] Hemoglobin 13.6 11.5 - 16.0 g/dL LAB HEMETOLOGY METHOD 04/23/2025 3:[address] [facility] Hematocrit 42.3 35.0 - 47.0 % LAB HEMETOLOGY METHOD 04/23/2025 3:[address] [facility] MCV 84.9 79.0 - 98.0 FL LAB HEMETOLOGY METHOD 04/23/2025 3:[address] [facility] MCH 27.3 27.0 - 32.0 pcg LAB HEMETOLOGY METHOD 04/23/2025 3:09 PM [facility] MCHC 32.2 32.0 - 37.0 g/dL LAB HEMETOLOGY METHOD 04/23/2025 3:[address] [facility] RDW 14.0 11.0 - 15.0 % LAB HEMETOLOGY METHOD 04/23/2025 3:09 PM [facility] Platelets 248 130 - 400 K/mcL LAB HEMETOLOGY METHOD 04/23/2025 3:09 PM [facility] MPV 10.2 7.0 - 11.0 FL LAB HEMETOLOGY METHOD 04/23/2025 3:09 PM [facility] NRBC 0.0 <1.0 % LAB HEMETOLOGY METHOD 04/23/2025 3:09 PM [facility] NRBC Absolute 0.00 <0.10 K/mcL LAB HEMETOLOGY METHOD 04/23/2025 3:09 PM [facility] Neutrophils Relative 48.6 % LAB HEMETOLOGY METHOD 04/23/2025 3:09 PM [facility] Lymphocytes Relative 40.2 % LAB HEMETOLOGY METHOD 04/23/2025 3:09 PM [facility] Monocytes Relative 7.8 % LAB HEMETOLOGY METHOD 04/23/2025 3:09 PM [facility] Eosinophils Relative 2.1 % LAB HEMETOLOGY METHOD 04/23/2025 3:09 PM [facility] Basophils Relative 0.9 % LAB HEMETOLOGY METHOD 04/23/2025 3:09 PM [facility] Immature Granulocytes Relative 0.4 % LAB HEMETOLOGY METHOD 04/23/2025 3:09 PM [facility] Neutrophils Absolute 2.57 1.50 - 7.00 K/mcL LAB HEMETOLOGY METHOD 04/23/2025 3:09 PM [facility] Lymphocytes Absolute 2.12 1.00 - 5.00 K/mcL LAB HEMETOLOGY METHOD 04/23/2025 3:09 PM [facility] Monocytes Absolute 0.41 0.20 - 1.00 K/mcL LAB HEMETOLOGY METHOD 04/23/2025 3:[address] [facility] Eosinophils Absolute 0.11 0.00 - 0.50 K/[facility] LAB HEMETOLOGY METHOD 04/23/2025 3:[address] [facility] Basophils Absolute 0.05 0.00 - 0.20 K/[facility] LAB HEMETOLOGY METHOD 04/23/2025 3:[address] [facility] Immature Granulocytes Absolute 0.02 0.00 - 0.03 K/[facility] LAB HEMETOLOGY METHOD 04/23/2025 3:[address] [facility] Blood Venous blood specimen / Unknown Venipuncture / Unknown 04/23/2025 12:00 PM EDT 04/23/2025 12:00 PM EDT [facility] LAB BLOOD ORDERABLES Final Resul t [facility] [address] [place] [address], [place] [phone] * Vitamin D 25 hydroxy (04/23/2025 12:00 PM EDT) [facility] Vit D, 25-Hydroxy 49.8 30.0 - 80.0 ng/mL LAB CHEMISTRY METHOD 04/23/2025 4:[address] [facility] Blood Venous blood specimen / Unknown Venipuncture / Unknown 04/23/2025 12:00 PM EDT 04/23/2025 12:00 PM EDT [facility] LAB BLOOD ORDERABLES Final Resul t [facility] [address] [place] [address], [place] [phone] * Rheumatoid factor (04/23/2025 12:00 PM EDT) [facility] Rheumatoid Factor <10.0 <15.0 I Unit/mL LAB CHEMISTRY METHOD 04/23/2025 4:[address] [facility] Blood Venous blood specimen / Unknown Venipuncture / Unknown 04/23/2025 12:00 PM EDT 04/23/2025 12:00 PM EDT [facility] LAB BLOOD ORDERABLES Final Resul t Performing Organization Address City/[facility]/ZIP Co de Phone Number [facility] [address] [place] [address], [place] [phone] * Thyroid stimulating hormone (04/23/2025 12:00 PM EDT) [facility] TSH 0.97 0.40 - 4.00 mcIU/mL LAB CHEMISTRY METHOD 04/23/2025 4:[address] [facility] Blood Venous blood specimen / Unknown Venipuncture / Unknown 04/23/2025 12:00 PM EDT 04/23/2025 12:00 PM EDT [facility] LAB BLOOD ORDERABLES Final Resul t Performing Organization Address City/[facility]/ZIP Co de Phone Number [facility] [address] [place] [address], [place] [phone] * Hemoglobin A1c (04/23/2025 12:00 PM EDT) [facility] Hemoglobin A1C 6.1 <6.5 % LAB CHEMISTRY METHOD 04/23/2025 9:[address] [facility] Mean Bld Glu Estim. 128 mg/dL LAB CHEMISTRY METHOD 04/23/2025 9:[address] [facility] Blood Venous blood specimen / Unknown Venipuncture / Unknown 04/23/2025 12:00 PM EDT 04/23/2025 12:00 PM EDT [facility] LAB BLOOD ORDERABLES Final Resul t [facility] [address] [place] [address], * Comprehensive metabolic panel (04/23/2025 12:00 PM EDT) Sodium 136 133 - 145 mmol/L LAB CHEMISTRY METHOD 04/23/2025 4:11 PM [facility] Potassium 4.1 3.5 - 5.5 mmol/L LAB CHEMISTRY METHOD 04/23/2025 4:11 PM [facility] Chloride 105 96 - 110 mmol/L LAB CHEMISTRY METHOD 04/23/2025 4:11 PM [facility] CO2 24 21 - 32 mmol/L LAB CHEMISTRY METHOD 04/23/2025 4:11 PM [facility] Anion Gap 7 3 - 11 LAB CHEMISTRY METHOD 04/23/2025 4:11 PM [facility] Glucose 92 70 - 100 mg/dL LAB CHEMISTRY METHOD 04/23/2025 4:11 PM [facility] BUN 16 5 - 25 mg/dL LAB CHEMISTRY METHOD 04/23/2025 4:11 PM [facility] Creatinine 0.61 0.50 - 1.10 mg/dL LAB CHEMISTRY METHOD 04/23/2025 4:11 PM [facility] eGFR 95 >=60 mL/min/1. 73m2 LAB CHEMISTRY METHOD 04/23/2025 4:11 PM [facility] Comment:Calculation based on the Chronic Kidney Disease Epidemiology Collaboration (CKD-EPI) equation refit without adjustment for race. BUN/Creatinine Ratio 26.2 LAB CHEMISTRY METHOD 04/23/2025 4:11 PM [facility] Calcium 8.9 8.5 - 10.5 mg/dL LAB CHEMISTRY METHOD 04/23/2025 4:[address] [facility] AST (SGOT) 21 10 - 42 unit/L LAB CHEMISTRY METHOD 04/23/2025 4:[address] [facility] ALT (SGPT) 28 10 - 60 unit/L LAB CHEMISTRY METHOD 04/23/2025 4:[address] [facility] Alkaline Phosphatase 72 42 - 121 unit/L LAB CHEMISTRY METHOD 04/23/2025 4:[address] [facility] Total Protein 6.4 6.0 - 8.0 g/dL LAB CHEMISTRY METHOD 04/23/2025 4:[address] [facility] Albumin 3.8 3.2 - 5.0 g/dL LAB CHEMISTRY METHOD 04/23/2025 4:[address] [facility] Total Bilirubin 0.5 0.0 - 1.4 mg/dL LAB CHEMISTRY METHOD 04/23/2025 4:[address] [facility] Blood Venous blood specimen / Unknown Venipuncture / Unknown 04/23/2025 12:00 PM EDT 04/23/2025 12:00 PM EDT [facility] LAB BLOOD ORDERABLES Final Resul t [facility] [address] [place] [address], from Last 3 Months Insurance MEDICARE [facility] Care Teams Supervisor Body Assembly Relationship Specialty Start Date End Date Kuldeep Dean DO [address] [place] [phone] PCP - General Internal Medicine 08/19/19
== END 2025-05-15 08:21 | disposition home or self-care (01) ==
LOC: HO.MAMMO 08:20
PROVIDERS: PCP Internal Medicine; Visit Provider Internal Medicine
DX: Z12.31 Encounter for screening mammogram for malignant neoplasm of breast (principal); M81.0 Age-related osteoporosis without current pathological fracture
CPT/HCPCS: 77063; 77067; 77080

== ENCOUNTER → 2025-05-15 09:15 | Outpatient (BNV) | payer MEDICARE, BC, SELFPAY | PROVIDERS: PCP Internal Medicine; Visit Provider Radiology Diagnostic Radiology | DX: E28.39 Other primary ovarian failure (principal) | CPT/HCPCS: 77080 ==